=== PATIENT | male | born 1970 | race Caucasian/White ===

== ENCOUNTER 2017-06-01 05:19 | Day surgery (SDC) | payer OTHER ==
[~2017-06-01] VITALS: Ht 185.4 cm; Wt 83.0 kg
--- NOTE | ~2017-06-01 | O ---
[facility] [place] [address] OPERATIVE REPORT Name: ABDI JACOBSON Room #: DEP [facility]..#: [id number] Admission: 06/01/17 Attend Phys: Raj Arriola MD Discharge: 06/01/17 Date of : 70 Report #: [id number] THIS REPORT FOR: //name// CC: Raj Sepulveda DATE OF SERVICE: 06/01/2017 PREOPERATIVE DIAGNOSIS: Turbinate hypertrophy. POSTOPERATIVE DIAGNOSIS: Turbinate hypertrophy. PROCEDURE: Submucous resection and outfracturing of each inferior turbinates. SURGEON: Raj Arriola MD ANESTHESIA: General LMA. TECHNIQUE: After obtaining consent, the patient was brought to the operating suite. Appropriate timeout was performed. General mask anesthesia was obtained. The bed was turned 90 degrees. Nose was prepped and draped in usual sterile fashion. Cottonoids with Afrin were placed in each side of the nares for a few minutes. I injected each inferior turbinate with 2 mL of 1% Xylocaine 1:100,000 epinephrine on the medial surface with care being made not to inject intravascularly. After waiting several minutes, the right inferior turbinate was medialized with a [place] elevator. A small stab incision was made in the anterior, inferior face and elevated the submucosal flap on the medial and medial inferior surfaces. Using microdebrider blade, this submucosal removal was accomplished , I did trim a small amount of the inferior tip off as well. The inferior turbinate was then outfractured with the [place] elevator. Similar procedure was performed on the left turbinate. A single piece of Merogel was then trifolded and placed between the septum and the turbinate to prevent any synechia formation. It should be noted he has a mild left posterior septal deviation as well. At this point, he was allowed to awaken from anesthesia, went to recovery room in stable condition. ESTIMATED BLOOD LOSS: 2 mL. <ELECTRONICALLY SIGNED> By: Raj Arriola MD 06/08/17 0732 [id number] 1413 Raj Arriola MD /nt
--- NOTE | ~2017-06-01 | EKG ---
[address] [facility] [place] [address] ELECTROCARDIOGRAM REPORT Name: ABDI JACOBSON Room #: DEP [employer].#: [id number] Admission: 06/01/17 Attend Phys: Raj Arriola MD Discharge: 06/01/17 Date of : 70 Report #: [id number] THIS REPORT FOR: //name// [facility] Test Date: 2017-06-01 Test Time: 11:07:00 Pat Name: ABDI JACOBSON Department: Room: 150 1 Gender: M School Bus Driver: juli : 1970 Requested By: Raj Arriola Order Number: [id number] MD: Facundo Agrawal Measurements Intervals [place] Rate: 80 P: 70 WA: 157 QRS: -29 QRSD: 93 T: 49 QT: 387 QTc: 447 Interpretive Statements Sinus rhythm Borderline left axis deviation Baseline wander in lead(s) V6 No previous ECG available for comparison Electronically Signed On 06-03-2017 13:56:22 [employer] by Facundo Agrawal [email or web address] <ELECTRONICALLY SIGNED> By: Facundo Agrawal MD, [facility] 06/03/17 1356 06 06 Facundo Agrawal MD, FACC /EPI
[~2017-06-01 05:19] MED LIST: CAT'S CLAW500 MG PO; CENTRUM SILVER1 EAC4 PO; ECHINACEA500 MG PO; FISH OIL 1,001000 M2 PO; IBUPROFEN 200200 M1 OR; NASACORT NS; RITALIN LA20 MG OR; TOPROL XL25 MG PO; [UNRECOGNIZED DRUG - OTHER] PO
[2017-06-01 11:28] VITALS: BP 132/90
[2017-06-01 13:28] VITALS: BP 132/90
== END 2017-06-01 18:13 | disposition home or self-care (01) ==
LOC: OR 05:19 → TBA 05:20 → OR 09:10
DX: J34.3 Hypertrophy of nasal turbinates (principal); I10 Essential (primary) hypertension; K21.9 Gastro-esophageal reflux disease without esophagitis; Z98.890 Other specified postprocedural states; Z87.442 Personal history of urinary calculi; Z88.0 Allergy status to penicillin; Z79.899 Other long term (current) drug therapy
CPT/HCPCS: 50010; 50101; 50386; 50398; 51316; 51634; 53635; 62110; 62900; 64037; 70005